=== PATIENT | female | born 1950 | race Caucasian/White ===

== ENCOUNTER 2016-08-27 10:38 | Emergency (ER) | payer BC, OTHER ==
[~2016-08-27] VITALS: Ht 160 cm; Wt 57.2 kg
[~2016-08-27 10:38] MED LIST: ATOR20TA PO; BUPR8SUB SL; CLON0.1T PO; CLOP75TA28 OR; GAB400C PO; METF-312 OR; OXYCONTIN PO; SENN8.6T4 PO; VALS40TA2 OR; VALS80TA42
[2016-08-27 10:47] VITALS: BP 128/81
[2016-08-27 12:06] LABS: Basophils # (auto) 0 uL; Basophils % (auto) 0.4 % (0.0-2.0); Eosinophils # (auto) 0.2 uL; Eosinophils % (auto) 1.9 % (0.0-7.0); Hematocrit 44.9 % (36.0-46.0); Hemoglobin 14.7 g/dL (12.2-16.2); Lymphocytes % (auto) 25.4 % (10.0-50.0); Mean Corpuscular Hemoglobin 31.5 pg (28.0-32.0); Mean Corpuscular Hgb Conc. 32.8 g/dL (32.0-36.0); Mean Corpuscular Volume 96.1 fL (80.0-100.0); Monocytes # (auto) 0.5 uL; Monocytes % (auto) 6.4 % (0.0-12.0); Neutrophils # (auto) 5.2 uL; Neutrophils % (auto) 65.9 % (37.0-80.0); Platelet Count (auto) 352 10^3/uL (140-450); Red Cell Distribution Width 14.5 % (11.6-16.0); White Blood Cell 7.9 10^3/uL (4.4-10.8)
[2016-08-27 12:23] LABS: Albumin 3.6 g/dL (3.4-5.0); Alkaline Phosphatase 68 U/L (45-117); Anion Gap 8 (5-15); Aspartate Aminotransferase 15 U/L (15-37); BUN/Creatinine Ratio 28.2; Bilirubin, Total 0.3 mg/dL (0.2-1.0); Blood Urea Nitrogen 24 mg/dL (7-18); Calcium 8.8 mg/dL (8.5-10.1); Carbon Dioxide 27 mmol/L (21-32); Chloride 103 mmol/L (98-107); GFR African American 86 mL/min; GFR Non-African American 71 mL/min; Glucose 174 mg/dL (74-106); Magnesium 2.8 mg/dL (1.6-2.6); Potassium 3.9 mmol/L (3.5-5.1); Sodium 138 mmol/L (136-145); Total Protein 6.6 g/dL (6.4-8.2)
== END 2016-08-27 21:49 | disposition left against medical advice (07) ==
LOC: ER 10:40
DX: R03.0 Elevated blood-pressure reading, without diagnosis of hypertension (principal); R42 Dizziness and giddiness; R51 Headache; Z88.6 Allergy status to analgesic agent; Z88.5 Allergy status to narcotic agent
CPT/HCPCS: 36415; 70450; 80053; 83735; 84484; 85025; 93005

== ENCOUNTER 2016-09-07 15:38 | Emergency (ER) | payer BC ==
[~2016-09-07] VITALS: Ht 160 cm; Wt 56.7 kg
[2016-09-07] MEDS ORDERED: SODIUM CHLORIDE 0.9% 1,000 ML IV ONE (17:00)
[2016-09-07 17:11] LABS: Basophils # (auto) 0 uL; Basophils % (auto) 0.2 % (0.0-2.0); Eosinophils # (auto) 0.1 uL; Eosinophils % (auto) 1.3 % (0.0-7.0); Hematocrit 40.8 % (36.0-46.0); Hemoglobin 13.9 g/dL (12.2-16.2); Lymphocytes # (auto) 1.8 uL; Lymphocytes % (auto) 16.4 % (10.0-50.0); Mean Corpuscular Hemoglobin 32.6 pg (28.0-32.0); Mean Corpuscular Hgb Conc. 34.2 g/dL (32.0-36.0); Mean Corpuscular Volume 95.5 fL (80.0-100.0); Mean Platelet Volume 8.1 fL (7.4-10.4); Monocytes % (auto) 8.9 % (0.0-12.0); Neutrophils % (auto) 73.2 % (37.0-80.0); Platelet Count (auto) 324 10^3/uL (140-450); Red Cell Distribution Width 14.6 % (11.6-16.0)
[2016-09-07] MEDS ORDERED: LORazepam 2MG/ML-1ML VIAL IV ONE (17:15)
[2016-09-07 17:27] LABS: Albumin 3.5 g/dL (3.4-5.0); BUN/Creatinine Ratio 30.9; Bilirubin, Total 0.2 mg/dL (0.2-1.0); Calcium 8.5 mg/dL (8.5-10.1); Potassium 3.6 mmol/L (3.5-5.1); Total Protein 6.9 g/dL (6.4-8.2)
[2016-09-07 18:45] VITALS: BP 153/88
== END 2016-09-07 19:56 | disposition home or self-care (01) ==
LOC: ER 15:38
DX: R19.7 Diarrhea, unspecified (principal); E11.9 Type 2 diabetes mellitus without complications; I10 Essential (primary) hypertension; Z86.73 Personal history of transient ischemic attack (TIA), and cerebral infarction without residual deficits; Z87.442 Personal history of urinary calculi; Z88.6 Allergy status to analgesic agent; Z88.1 Allergy status to other antibiotic agents
CPT/HCPCS: 36415; 74000; 80053; 85025; 96361; 96374; 99285; J2060

== ENCOUNTER → 2016-10-17 | Outpatient (CLI) | payer BC ==
[~2016-10-17] MED LIST changes: -METF-312 OR; +METF-370 OR
== END | disposition home or self-care (01) ==
LOC: XYW 08:36
PROVIDERS: ATTEND Internal Medicine Cardiovascular Disease
DX: I51.7 Cardiomegaly (principal); R00.2 Palpitations; R07.9 Chest pain, unspecified
CPT/HCPCS: 93017; 93306

== ENCOUNTER 2016-10-25 14:03 | Emergency (ER) | payer BC ==
[~2016-10-25] VITALS: Ht 157.5 cm; Wt 59.0 kg
[2016-10-25 14:56] LABS: Basophils # (auto) 0 uL; Basophils % (auto) 0.5 % (0.0-2.0); CONDITION Y; Eosinophils # (auto) 0.2 uL; Eosinophils % (auto) 2.6 % (0.0-7.0); Hematocrit 42.5 % (36.0-46.0); Hemoglobin 14.5 g/dL (12.2-16.2); Lymphocytes # (auto) 2.2 uL; Lymphocytes % (auto) 24.8 % (10.0-50.0); Mean Corpuscular Hemoglobin 33.4 pg (28.0-32.0); Mean Corpuscular Volume 98.1 fL (80.0-100.0); Mean Platelet Volume 7.7 fL (7.4-10.4); Monocytes # (auto) 0.7 uL; Monocytes % (auto) 8.2 % (0.0-12.0); Neutrophils # (auto) 5.7 uL; Neutrophils % (auto) 63.9 % (37.0-80.0); Platelet Count (auto) 404 10^3/uL (140-450); Red Cell Distribution Width 15.4 % (11.6-16.0); White Blood Cell 8.9 10^3/uL (4.4-10.8)
[2016-10-25 15:15] LABS: Anion Gap 9 (5-15); Aspartate Aminotransferase 16 U/L (15-37); BUN/Creatinine Ratio 35.6; Blood Urea Nitrogen 32 mg/dL (7-18); Calcium 8.5 mg/dL (8.5-10.1); Carbon Dioxide 27 mmol/L (21-32); Chloride 107 mmol/L (98-107); GFR African American 80 mL/min; GFR Non-African American 66 mL/min; Glucose 110 mg/dL (74-106); Potassium 4.2 mmol/L (3.5-5.1); Sodium 143 mmol/L (136-145)
[2016-10-25 15:18] LABS: Acetaminophen < 2.0 ug/mL (10-30)
[2016-10-25 15:23] LABS: Urine Bilirubin Negative (Negative); Urine Color Yellow (Yellow); Urine Glucose Normal (Normal); Urine Ketone Negative (Negative); Urine Mucus FEW (None Seen); Urine RBC 542 /hpf (0 - 4); Urine Squamous Epithelial Cell FEW /hpf (<5); Urine Urobilinogen Normal (Negative); Urine WBC Clumps PRESENT /hpf (None Seen); Urine pH 5.5 (5.0-8.0)
[2016-10-25 15:24] LABS: Urine Blood 2+ /uL (Negative); Urine Nitrite POSITIVE (Negative)
[2016-10-25 15:27] LABS: Alkaline Phosphatase 92 U/L (45-117); Bilirubin, Total 0.3 mg/dL (0.2-1.0); Total Protein 7.5 g/dL (6.4-8.2)
[2016-10-25] MEDS ORDERED: NITROFURANTOIN (MONO) 100 mg CAP PO ONE (16:45)
[2016-10-25] MEDS ORDERED: LORazepam 2MG/ML-1ML VIAL IV ONE (17:45)
[2016-10-25] MEDS ORDERED: LORazepam 0.5 MG TAB PO ONE (18:15)
[2016-10-26] MEDS ORDERED: IBUPROFEN 600 MG TAB PO ONE (01:00)
[2016-10-26] MEDS ORDERED: LOSARTAN POTASSIUM 25 MG TAB PO PRN (03:30)
[2016-10-26] MEDS: LOSARTAN POTASSIUM 25 MG TAB ONE ×2 (03:38→03:43)
[2016-10-26] MEDS ORDERED: traZODone HCL 50 MG TAB PO ONE ×2 (04:15→04:30)
[2016-10-26] MEDS ORDERED: ACETAMINOPHEN 325 MG TAB PO PRN (07:30)
[2016-10-26] MEDS ORDERED: IBUPROFEN 600 MG TAB PO PRN (07:30)
[2016-10-26 08:31] VITALS: BP 123/74
== END 2016-10-26 07:52 | disposition short-term general hospital (02) ==
LOC: ER 14:03
DX: F32.9 Major depressive disorder, single episode, unspecified (principal); N39.0 Urinary tract infection, site not specified; R45.851 Suicidal ideations; E11.9 Type 2 diabetes mellitus without complications; I10 Essential (primary) hypertension; F17.210 Nicotine dependence, cigarettes, uncomplicated; Z86.73 Personal history of transient ischemic attack (TIA), and cerebral infarction without residual deficits
CPT/HCPCS: 36415; 80053; 80307; 80320; 80329; 81001; 84702; 85025

== ENCOUNTER → 2017-04-24 | Outpatient (CLI) | payer BC | END | disposition home or self-care (01) | LOC: Rad HDHVI 12:13 | PROVIDERS: ATTEND Internal Medicine Cardiovascular Disease | DX: G62.9 Polyneuropathy, unspecified (principal) | CPT/HCPCS: 93880 ==

== ENCOUNTER 2021-05-24 20:58 | Inpatient (IN) | payer BC, OTHER ==
[~2021-05-24] VITALS: Ht 167.6 cm; Wt 67.4 kg
[~2021-05-24 20:58] MED LIST changes: +VALS80TA4; -VALS80TA42
[2021-05-24 23:26] LABS: Hematocrit 38.7 % (36.0-46.0); Hemoglobin 12.5 g/dL (12.2-16.2); Mean Corpuscular Hgb Conc. 32.3 g/dL (32.0-36.0); Red Blood Cells 4.16 10^6/uL (4.0-5.20); Red Cell Distribution Width 16.9 % (11.8-14.3); White Blood Cell 7.9 10^3/uL (4.4-10.8)
[2021-05-24 23:29] LABS: Basophils % (manual) 0 (0.0-2.0); Blast Cells 0; Eosinophils % (manual) 0 (0-7); Metamyelocytes % 0; Promyelocytes % 0; Reactive Lymphocytes 0
[2021-05-24 23:34] LABS: Albumin 2.2 g/dL (3.4-5.0); Calcium 8.1 mg/dL (8.5-10.1); Magnesium 2.9 mg/dL (1.6-2.6); Potassium 3.5 mmol/L (3.5-5.1)
[2021-05-24 23:34] LABS: Lactic Acid w/Reflex 2.2 mmol/L (0.4-2.0)
[2021-05-24 23:39] LABS: Bilirubin, Total 0.3 mg/dL (0.2-1.0); Total Protein 5.7 g/dL (6.4-8.2)
[2021-05-25] MEDS ORDERED: ENOXAPARIN SOD 100 MG/1 ML SYRINGE SC ONE
[2021-05-25 00:22] LABS: Band Neutrophils % (manual) 5; Lymphocytes % (manual) 11 (10.0-50.0); Monocytes % (manual) 8 (0-12); Myelocytes % 1
[2021-05-25] MEDS ORDERED: PIPERACILLIN-TAZOB 3.375GM 100 ML IV ONE (01:00)
[2021-05-25 03:48] LABS: Urine Bacteria MOD /hpf (None Seen); Urine Blood 3+ /uL (Negative); Urine Mucus FEW (None Seen); Urine Specific Gravity 1.017 (1.001-1.035); Urine WBC 1290 /hpf (0 - 5); Urine WBC Clumps PRESENT /hpf (None Seen)
[2021-05-25] MEDS ORDERED: IOHEXOL 350 MG/ML 100ML IJ ONE (06:42)
[2021-05-25] MEDS ORDERED: NITROGLYCERIN 0.4 MG SL TAB SL PRN (07:15)
[2021-05-25] MEDS ORDERED: DEXTROSE (50%) 50ML SYRG IV PRN (07:15)
[2021-05-25] MEDS ORDERED: ONDANSETRON HCL 4 MG/2 ML VIAL IV PRN (07:15)
[2021-05-25 07:55] LABS: BUN/Creatinine Ratio 55.4; Calcium 7.9 mg/dL (8.5-10.1); Potassium 3.7 mmol/L (3.5-5.1)
[2021-05-25] MEDS: cefTRIAXone 1GM/50ML D5W 50 ML IV SCH ×2 (08:54→09:30)
[2021-05-25] MEDS ORDERED: ENOXAPARIN SOD 100 MG/1 ML SYRINGE SC SCH (10:00)
[2021-05-25] MEDS ORDERED: DexAMETHasone SOD PHOS 10MG/1ML VIAL INJ IV ONE (11:45)
[2021-05-25] MEDS: ACCU-CHEK COMFORT CURVE STRIP VI SCH ×3 (11:59→21:37)
[2021-05-25] MEDS: InsuLIN REG 1unit/0.01ml Soln (100units/ml) SC SCH ×2 (12:06→16:42)
[2021-05-25] MEDS: ENOXAPARIN SOD 60 MG/0.6 ML SYRINGE SC SCH (12:15)
[2021-05-25] MEDS ORDERED: ACETAMINOPHEN 325 MG TAB PO ONE (15:00)
[2021-05-25 20:00] VITALS: BP 115/56
[2021-05-25] MEDS: ATORVASTATIN 20 MG TAB PO SCH (21:37)
[2021-05-25 21:46] VITALS: BP 95/56
[2021-05-25] MEDS ORDERED: InsuLIN REG 1unit/0.01ml Soln (100units/ml) SC SCH (22:00)
[2021-05-26] VITALS (7 sets, daily range): BP systolic 89–122; BP diastolic 55–69
[2021-05-26] MEDS: ENOXAPARIN SOD 60 MG/0.6 ML SYRINGE SC SCH ×3 (00:05→23:29)
[2021-05-26] MEDS: ACCU-CHEK COMFORT CURVE STRIP VI SCH ×4 (06:30→23:30)
[2021-05-26] MEDS: InsuLIN REG 1unit/0.01ml Soln (100units/ml) SC SCH ×4 (06:31→23:31)
[2021-05-26 08:39] LABS: Basophils # (auto) 0.1 10 ^3/uL (0-0.2); Basophils % (auto) 0.8 % (0.0-2.0); Eosinophils # (auto) 0 10 ^3/uL (0-0.8); Hematocrit 37.4 % (36.0-46.0); Hemoglobin 12.3 g/dL (12.2-16.2); Lymphocytes # (auto) 0.7 10 ^3/uL (0.4-5.4); Lymphocytes % (auto) 7.9 % (10.0-50.0); Mean Corpuscular Hemoglobin 30.5 pg (28.0-32.0); Mean Corpuscular Hgb Conc. 32.9 g/dL (32.0-36.0); Mean Corpuscular Volume 92.7 fL (80.0-100.0); Monocytes # (auto) 0.3 10 ^3/uL (0-1.3); Neutrophils # (auto) 7.5 10 ^3/uL (1.6-8.6); Neutrophils % (auto) 87.3 % (37.0-80.0); Nucleated Red Blood Cells % 0.1 %; Red Blood Cells 4.04 10^6/uL (4.0-5.20); White Blood Cell 8.6 10^3/uL (4.4-10.8)
[2021-05-26 09:00] LABS: BUN/Creatinine Ratio 68.2; Calcium 8.2 mg/dL (8.5-10.1); Potassium 3.8 mmol/L (3.5-5.1)
[2021-05-26] MEDS: cefTRIAXone 1GM/50ML D5W 50 ML IV SCH (09:44)
[2021-05-26] MEDS: DexAMETHasone SOD PHOS 10MG/1ML VIAL INJ IV SCH (09:44)
[2021-05-26] MEDS: D5W 5% 1,000 ML IV SCH (14:10)
[2021-05-26] MEDS ORDERED: PPN PER PHARMACY 0 ML IV SCH (14:30)
[2021-05-26 15:20] LABS: Phosphorus 2.8 mg/dL (2.5-4.90); Pre Albumin 7.8 mg/dL (20.0-40.0)
[2021-05-26] MEDS ORDERED: HYDROcodone-ACET 5/325MG TAB PO PRN (15:30)
[2021-05-26] MEDS ORDERED: REMDESIVIR PER PHARMACY 0 ML IV SCH (16:15)
[2021-05-26] MEDS ORDERED: traMADol HCL 50 MG TAB PO PRN (17:15)
[2021-05-26] MEDS ORDERED: MORPHINE SULFATE INJECTION 2 MG/ML SYRG IV PRN (17:15)
[2021-05-26] MEDS ORDERED: REMDESIVIR 200 MG in NS 210ml LOADING DOSE ADULT IV ONE (18:00)
[2021-05-26] MEDS ORDERED: AMINO ACID INFUSION IN D10W 1,000 ML IV NR (20:00)
[2021-05-26] MEDS: ATORVASTATIN 20 MG TAB PO SCH (23:29)
[2021-05-27] MEDS ORDERED: DEXTROSE (50%) 50ML SYRG IV SCH
[2021-05-27 05:00] VITALS: BP 106/66
[2021-05-27] MEDS: ACCU-CHEK COMFORT CURVE STRIP VI SCH ×3 (05:31→17:11)
[2021-05-27] MEDS: D5W 5% 1,000 ML IV SCH ×2 (05:31→11:18)
[2021-05-27] MEDS: InsuLIN REG 1unit/0.01ml Soln (100units/ml) SC SCH ×3 (05:40→17:13)
[2021-05-27 06:43] LABS: Albumin 1.8 g/dL (3.4-5.0); BUN/Creatinine Ratio 53.5; Calcium 7.9 mg/dL (8.5-10.1); Potassium 3.7 mmol/L (3.5-5.1)
[2021-05-27 06:56] LABS: Bilirubin, Total 0.2 mg/dL (0.2-1.0); Phosphorus 1.5 mg/dL (2.5-4.90); Total Protein 5.2 g/dL (6.4-8.2)
[2021-05-27] MEDS: DexAMETHasone SOD PHOS 10MG/1ML VIAL INJ IV SCH (08:05)
[2021-05-27] MEDS ORDERED: LORazepam 2MG/ML-1ML VIAL IV ONE (08:30)
[2021-05-27] MEDS: cefTRIAXone 1GM/50ML D5W 50 ML IV SCH (08:50)
[2021-05-27] MEDS: ASPirin 81 mg TAB PO SCH (09:43)
[2021-05-27] MEDS ORDERED: D5W 5% 1,000 ML IV SCH ×2 (10:45)
[2021-05-27] MEDS: ENOXAPARIN SOD 40 MG/0.4 ML SYRINGE SC SCH (10:46)
[2021-05-27] MEDS ORDERED: POTASSIUM PHOSPHATE 22 MEQ in SODIUM CHL 0.9% 100 ML IV ONE (11:30)
[2021-05-27 13:00] VITALS: BP 114/80
[2021-05-27] MEDS: REMDESIVIR 100mg 100 MG in SODIUM CHL 0.9% 230 ML IV SCH (15:00)
[2021-05-27 16:53] VITALS: BP 114/86
[2021-05-27] MEDS ORDERED: PPN PER PHARMACY IV NR ×6 (20:00)
[2021-05-27] MEDS: ATORVASTATIN 20 MG TAB PO SCH (21:14)
[2021-05-27 22:00] VITALS: BP 93/71
[2021-05-28] MEDS: ACCU-CHEK COMFORT CURVE STRIP VI SCH ×4 (00:55→17:37)
[2021-05-28] MEDS: InsuLIN REG 1unit/0.01ml Soln (100units/ml) SC SCH ×4 (00:57→17:38)
[2021-05-28] MEDS: LORazepam 2MG/ML-1ML VIAL IV PRN ×4 (01:50→23:25)
[2021-05-28 05:00] VITALS: BP 101/59
[2021-05-28 07:49] LABS: Basophils # (auto) 0 10 ^3/uL (0-0.2); Basophils % (auto) 0.1 % (0.0-2.0); Eosinophils # (auto) 0 10 ^3/uL (0-0.8); Eosinophils % (auto) 0.1 % (0.0-7.0); Hematocrit 37.1 % (36.0-46.0); Lymphocytes # (auto) 0.4 10 ^3/uL (0.4-5.4); Lymphocytes % (auto) 4.4 % (10.0-50.0); Mean Corpuscular Hgb Conc. 32.5 g/dL (32.0-36.0); Mean Corpuscular Volume 92.4 fL (80.0-100.0); Monocytes # (auto) 0.3 10 ^3/uL (0-1.3); Monocytes % (auto) 3.3 % (0.0-12.0); Neutrophils # (auto) 8.7 10 ^3/uL (1.6-8.6); Neutrophils % (auto) 92.1 % (37.0-80.0); Nucleated Red Blood Cells % 0.3 %; Red Blood Cells 4.01 10^6/uL (4.0-5.20); Red Cell Distribution Width 16.6 % (11.8-14.3); White Blood Cell 9.4 10^3/uL (4.4-10.8)
[2021-05-28 08:14] LABS: INR 1.2 (0.9-1.15); Partial Thromboplastin Time 28.8 sec (23.6-33.0)
[2021-05-28] MEDS: ENOXAPARIN SOD 40 MG/0.4 ML SYRINGE SC SCH (08:25)
[2021-05-28] MEDS: cefTRIAXone 1GM/50ML D5W 50 ML IV SCH (08:25)
[2021-05-28] MEDS: DexAMETHasone SOD PHOS 10MG/1ML VIAL INJ IV SCH (08:25)
[2021-05-28 08:30] VITALS: BP 120/59
[2021-05-28] MEDS: ASPirin 81 mg TAB PO SCH (08:35)
[2021-05-28 10:48] LABS: Albumin 1.9 g/dL (3.4-5.0); Calcium 7.7 mg/dL (8.5-10.1); Potassium 3.8 mmol/L (3.5-5.1)
[2021-05-28 10:52] LABS: Bilirubin, Total 0.3 mg/dL (0.2-1.0); Phosphorus 1.9 mg/dL (2.5-4.90); Total Protein 5.3 g/dL (6.4-8.2)
[2021-05-28] MEDS: D5W 5% 1,000 ML IV SCH (11:13)
[2021-05-28] MEDS ORDERED: POTASSIUM PHOSPHATE 44 MEQ in D5W 5% 250 ML IV ONE (11:30)
[2021-05-28] MEDS ORDERED: FUROSEMIDE 100 MG/10ML VIAL IV ONE (12:15)
[2021-05-28 12:30] VITALS: BP 98/70
[2021-05-28] MEDS ORDERED: FUROSEMIDE 40 MG/4 ML VIAL IV ONE (13:45)
[2021-05-28] MEDS: PANTOPRAZOLE 40 MG/10 ML VIAL INJ IV SCH (13:57)
[2021-05-28] MEDS: REMDESIVIR 100mg 100 MG in SODIUM CHL 0.9% 230 ML IV SCH (15:00)
[2021-05-28 17:00] VITALS: BP 128/66
[2021-05-28] MEDS ORDERED: PPN PER PHARMACY IV NR ×7 (20:00)
[2021-05-28 22:00] VITALS: BP 103/76
[2021-05-28] MEDS: ATORVASTATIN 20 MG TAB PO SCH (22:00)
[2021-05-29] MEDS: ACCU-CHEK COMFORT CURVE STRIP VI SCH ×4 (00:55→17:11)
[2021-05-29] MEDS: InsuLIN REG 1unit/0.01ml Soln (100units/ml) SC SCH ×4 (00:58→17:17)
[2021-05-29 05:00] VITALS: BP 140/82
[2021-05-29 07:15] LABS: Potassium 3.7 mmol/L (3.5-5.1)
[2021-05-29 07:20] LABS: Albumin 1.8 g/dL (3.4-5.0); BUN/Creatinine Ratio 49.2; Calcium 7.6 mg/dL (8.5-10.1); Total Protein 5.4 g/dL (6.4-8.2)
[2021-05-29 07:33] LABS: Bilirubin, Total 0.3 mg/dL (0.2-1.0); Phosphorus 1.6 mg/dL (2.5-4.90)
[2021-05-29] MEDS ORDERED: POTASSIUM PHOSPHATE 44 MEQ in D5W 5% 250 ML IV ONE (08:30)
[2021-05-29 09:00] VITALS: BP 119/60
[2021-05-29] MEDS: ASPirin 81 mg TAB PO SCH (10:00)
[2021-05-29] MEDS: cefTRIAXone 1GM/50ML D5W 50 ML IV SCH (10:07)
[2021-05-29] MEDS: PANTOPRAZOLE 40 MG/10 ML VIAL INJ IV SCH (10:07)
[2021-05-29] MEDS: DexAMETHasone SOD PHOS 10MG/1ML VIAL INJ IV SCH (10:07)
[2021-05-29] MEDS: ENOXAPARIN SOD 40 MG/0.4 ML SYRINGE SC SCH (10:07)
[2021-05-29] MEDS: LORazepam 2MG/ML-1ML VIAL IV PRN (10:11)
[2021-05-29] MEDS ORDERED: LIDOCAINE 1% (LOCAL ANESTH.) PF 5ml SDV ID ONE (11:45)
[2021-05-29] MEDS: D5W 5% 1,000 ML IV SCH ×2 (12:55→14:55)
[2021-05-29 13:00] VITALS: BP 134/91
[2021-05-29] MEDS: REMDESIVIR 100mg 100 MG in SODIUM CHL 0.9% 230 ML IV SCH (15:30)
[2021-05-29] MEDS ORDERED: POTASSIUM PHOSPHATE 22 MEQ in SODIUM CHL 0.9% 100 ML IV ONE (15:45)
[2021-05-29 17:00] VITALS: BP 144/84
[2021-05-29] MEDS: AZITHROMYCIN 500MG/ 250ML 250 ML IV SCH (17:11)
[2021-05-29 20:00] VITALS: BP 139/61
[2021-05-29] MEDS ORDERED: PPN PER PHARMACY IV NR ×8 (20:00)
[2021-05-29] MEDS ORDERED: HEPARIN SODIUM (PORCINE) 5000 UNITS/ML 1ML VIAL IV ONE (21:45)
[2021-05-29] MEDS ORDERED: HEPARIN DRIP/D5W 100UNITS/ML 250 ML IV SCH (21:45)
[2021-05-29 22:00] VITALS: BP 139/61
[2021-05-29] MEDS: ASCORBIC ACID 500 MG TAB PO SCH (22:00)
[2021-05-29] MEDS: ATORVASTATIN 20 MG TAB PO SCH (22:00)
[2021-05-29] MEDS: SODIUM CHLOR 0.9% PF (SALINE LOCK) 10ML VIAL/SYR IV SCH (22:29)
[2021-05-29 23:06] LABS: Basophils # (auto) 0.1 10 ^3/uL (0-0.2); Basophils % (auto) 0.9 % (0.0-2.0); Eosinophils # (auto) 0 10 ^3/uL (0-0.8); Eosinophils % (auto) 0.2 % (0.0-7.0); Hematocrit 38.6 % (36.0-46.0); Hemoglobin 12.8 g/dL (12.2-16.2); Lymphocytes # (auto) 0.4 10 ^3/uL (0.4-5.4); Lymphocytes % (auto) 4.2 % (10.0-50.0); Mean Corpuscular Hemoglobin 30.3 pg (28.0-32.0); Mean Corpuscular Hgb Conc. 33.1 g/dL (32.0-36.0); Mean Corpuscular Volume 91.6 fL (80.0-100.0); Monocytes # (auto) 0.4 10 ^3/uL (0-1.3); Monocytes % (auto) 4.3 % (0.0-12.0); Neutrophils # (auto) 8.5 10 ^3/uL (1.6-8.6); Neutrophils % (auto) 90.4 % (37.0-80.0); Nucleated Red Blood Cells % 0.2 %; Red Blood Cells 4.21 10^6/uL (4.0-5.20); White Blood Cell 9.4 10^3/uL (4.4-10.8)
[2021-05-29 23:21] LABS: INR 1.23 (0.9-1.15); Partial Thromboplastin Time 23.4 sec (23.6-33.0)
[2021-05-30] VITALS (9 sets, daily range): BP systolic 104–139; BP diastolic 52–73
[2021-05-30] MEDS: InsuLIN REG 1unit/0.01ml Soln (100units/ml) SC SCH ×4 (01:19→18:40)
[2021-05-30] MEDS: ACCU-CHEK COMFORT CURVE STRIP VI SCH ×5 (06:02→23:00)
[2021-05-30] MEDS: LORazepam 2MG/ML-1ML VIAL IV PRN ×3 (07:00→21:30)
[2021-05-30 08:18] LABS: Potassium 3.8 mmol/L (3.5-5.1)
[2021-05-30 08:29] LABS: Albumin 1.8 g/dL (3.4-5.0); BUN/Creatinine Ratio 58.7; Bilirubin, Total 0.5 mg/dL (0.2-1.0); Calcium 7.7 mg/dL (8.5-10.1); Phosphorus 2.1 mg/dL (2.5-4.90); Total Protein 5.2 g/dL (6.4-8.2)
[2021-05-30] MEDS: cefTRIAXone 1GM/50ML D5W 50 ML IV SCH (09:46)
[2021-05-30] MEDS: SODIUM CHLOR 0.9% PF (SALINE LOCK) 10ML VIAL/SYR IV SCH ×2 (09:47→21:28)
[2021-05-30] MEDS: PANTOPRAZOLE 40 MG/10 ML VIAL INJ IV SCH (09:47)
[2021-05-30] MEDS: DexAMETHasone SOD PHOS 10MG/1ML VIAL INJ IV SCH (09:47)
[2021-05-30] MEDS: ASCORBIC ACID 500 MG TAB PO SCH ×2 (09:48→21:29)
[2021-05-30] MEDS: CHOLECALCIFEROL (VITD3) 2,000 UNIT CAP/TAB PO SCH (09:48)
[2021-05-30] MEDS: ASPirin 81 mg TAB PO SCH (09:48)
[2021-05-30] MEDS: ZINC SULFATE 220mg CAP or TAB PO SCH (09:48)
[2021-05-30 09:50] LABS: INR 1.27 (0.9-1.15)
[2021-05-30 10:10] LABS: Partial Thromboplastin Time 85.3 sec (23.6-33.0)
[2021-05-30] MEDS: AZITHROMYCIN 500MG/ 250ML 250 ML IV SCH (11:00)
[2021-05-30] MEDS ORDERED: POTASSIUM PHOSP 22MEQ(15MMOLE) in NS 100 ML IV ONE (11:30)
[2021-05-30] MEDS: REMDESIVIR 100mg 100 MG in SODIUM CHL 0.9% 230 ML IV SCH (16:23)
[2021-05-30 18:11] LABS: INR 1.33 (0.9-1.15); Partial Thromboplastin Time 49.6 sec (23.6-33.0)
[2021-05-30] MEDS: HEPARIN DRIP/D5W 100UNITS/ML 250 ML IV SCH (19:24)
[2021-05-30] MEDS: ATORVASTATIN 20 MG TAB PO SCH (21:29)
[2021-05-30] MEDS: TPN PER PHARMACY IV NR ×8 (21:47)
[2021-05-30] MEDS ORDERED: QUEtiapine FUMARATE 25 MG TAB PO SCH (22:00)
[2021-05-31] MEDS: LORazepam 2MG/ML-1ML VIAL IV PRN ×2 (02:50→10:46)
[2021-05-31 05:00] VITALS: BP 121/82
[2021-05-31] MEDS: InsuLIN REG 1unit/0.01ml Soln (100units/ml) SC SCH ×4 (06:00→17:37)
[2021-05-31] MEDS: ACCU-CHEK COMFORT CURVE STRIP VI SCH ×3 (06:10→17:09)
[2021-05-31 06:56] LABS: Albumin 1.9 g/dL (3.4-5.0); Calcium 7.8 mg/dL (8.5-10.1); Potassium 3.9 mmol/L (3.5-5.1)
[2021-05-31 07:05] LABS: BUN/Creatinine Ratio 61.9; Bilirubin, Total 0.4 mg/dL (0.2-1.0); CRP High Sensitivity 7.51 mg/dL (< 0.3); Phosphorus 2.7 mg/dL (2.5-4.90); Total Protein 5.4 g/dL (6.4-8.2)
[2021-05-31 09:20] VITALS: BP 142/88
[2021-05-31] MEDS: CHOLECALCIFEROL (VITD3) 2,000 UNIT CAP/TAB PO SCH (10:00)
[2021-05-31] MEDS: ASPirin 81 mg TAB PO SCH (10:00)
[2021-05-31] MEDS: ZINC SULFATE 220mg CAP or TAB PO SCH (10:00)
[2021-05-31] MEDS ORDERED: TPN PER PHARMACY 0 ML IV SCH (10:00)
[2021-05-31] MEDS: ASCORBIC ACID 500 MG TAB PO SCH ×2 (10:00→21:10)
[2021-05-31] MEDS: DexAMETHasone SOD PHOS 10MG/1ML VIAL INJ IV SCH (10:08)
[2021-05-31] MEDS: cefTRIAXone 1GM/50ML D5W 50 ML IV SCH (10:08)
[2021-05-31] MEDS: SODIUM CHLOR 0.9% PF (SALINE LOCK) 10ML VIAL/SYR IV SCH ×2 (10:09→20:17)
[2021-05-31] MEDS: PANTOPRAZOLE 40 MG/10 ML VIAL INJ IV SCH (10:09)
[2021-05-31] MEDS: AZITHROMYCIN 500MG/ 250ML 250 ML IV SCH (11:03)
[2021-05-31 11:16] LABS: INR 1.17 (0.9-1.15)
[2021-05-31] MEDS: D5W 5% 1,000 ML IV SCH (11:16)
[2021-05-31 11:33] LABS: Partial Thromboplastin Time 81.2 sec (23.6-33.0)
[2021-05-31 12:46] VITALS: BP 150/71
[2021-05-31] MEDS: MAGNESIUM SULFATE 1GM/100ML 100 ML IV SCH ×2 (13:31→14:31)
[2021-05-31] MEDS: REMDESIVIR 100mg 100 MG in SODIUM CHL 0.9% 230 ML IV SCH (16:36)
[2021-05-31 17:00] VITALS: BP 143/77
[2021-05-31] MEDS: HEPARIN DRIP/D5W 100UNITS/ML 250 ML IV SCH (17:23)
[2021-05-31 20:00] VITALS: BP 139/61
[2021-05-31] MEDS ORDERED: TPN PER PHARMACY IV NR ×8 (20:00)
[2021-05-31] MEDS: TPN PER PHARMACY IV NR ×8 (20:17)
[2021-05-31] MEDS: ATORVASTATIN 20 MG TAB PO SCH (21:09)
[2021-05-31] MEDS: QUEtiapine FUMARATE 25 MG TAB PO SCH (21:10)
[2021-05-31] MEDS: ENOXAPARIN SOD 60 MG/0.6 ML SYRINGE SC SCH (21:12)
[2021-05-31 22:00] VITALS: BP 132/78
[2021-05-31] MEDS ORDERED: APIXABAN 5 MG TAB PO SCH (22:00)
[2021-06-01] MEDS: ACCU-CHEK COMFORT CURVE STRIP VI SCH ×4 (00:07→17:52)
[2021-06-01] MEDS: HALOPERIDOL LACTATE 5 MG/ML INJ VIAL IM PRN ×2 (04:51→17:54)
[2021-06-01 05:00] VITALS: BP 127/72
[2021-06-01] MEDS: InsuLIN REG 1unit/0.01ml Soln (100units/ml) SC SCH ×4 (06:15→17:53)
[2021-06-01 07:44] LABS: Basophils # (auto) 0 10 ^3/uL (0-0.2); Basophils % (auto) 0.1 % (0.0-2.0); Eosinophils # (auto) 0 10 ^3/uL (0-0.8); Eosinophils % (auto) 0.3 % (0.0-7.0); Hematocrit 41.4 % (36.0-46.0); Hemoglobin 13.4 g/dL (12.2-16.2); Lymphocytes # (auto) 0.5 10 ^3/uL (0.4-5.4); Lymphocytes % (auto) 4.8 % (10.0-50.0); Mean Corpuscular Hemoglobin 29.3 pg (28.0-32.0); Mean Corpuscular Hgb Conc. 32.4 g/dL (32.0-36.0); Mean Corpuscular Volume 90.5 fL (80.0-100.0); Monocytes # (auto) 0.8 10 ^3/uL (0-1.3); Monocytes % (auto) 7.1 % (0.0-12.0); Neutrophils # (auto) 9.9 10 ^3/uL (1.6-8.6); Neutrophils % (auto) 87.7 % (37.0-80.0); Nucleated Red Blood Cells % 0.1 %; Red Blood Cells 4.57 10^6/uL (4.0-5.20); Red Cell Distribution Width 16.4 % (11.8-14.3); White Blood Cell 11.3 10^3/uL (4.4-10.8)
[2021-06-01 08:04] LABS: Calcium 8.4 mg/dL (8.5-10.1); Potassium 4.1 mmol/L (3.5-5.1)
[2021-06-01 08:10] LABS: INR 1.11 (0.9-1.15); Partial Thromboplastin Time 27.8 sec (23.6-33.0)
[2021-06-01 08:21] LABS: Bilirubin, Total 0.4 mg/dL (0.2-1.0)
[2021-06-01 08:50] VITALS: BP 138/89
[2021-06-01] MEDS: ZINC SULFATE 220mg CAP or TAB PO SCH (10:00)
[2021-06-01] MEDS: QUEtiapine FUMARATE 25 MG TAB PO SCH ×2 (10:00→22:00)
[2021-06-01] MEDS: CHOLECALCIFEROL (VITD3) 2,000 UNIT CAP/TAB PO SCH (10:00)
[2021-06-01] MEDS: ASCORBIC ACID 500 MG TAB PO SCH ×2 (10:00→22:00)
[2021-06-01] MEDS: DexAMETHasone SOD PHOS 10MG/1ML VIAL INJ IV SCH (10:19)
[2021-06-01] MEDS: cefTRIAXone 1GM/50ML D5W 50 ML IV SCH (10:19)
[2021-06-01] MEDS: PANTOPRAZOLE 40 MG/10 ML VIAL INJ IV SCH (10:20)
[2021-06-01] MEDS: SODIUM CHLOR 0.9% PF (SALINE LOCK) 10ML VIAL/SYR IV SCH ×2 (10:20→22:13)
[2021-06-01] MEDS: ENOXAPARIN SOD 60 MG/0.6 ML SYRINGE SC SCH ×2 (10:21→22:21)
[2021-06-01 10:53] LABS: BUN/Creatinine Ratio 58.9
[2021-06-01] MEDS: D5W 5% 1,000 ML IV SCH (11:16)
[2021-06-01 13:00] VITALS: BP 138/80
[2021-06-01] MEDS ORDERED: FUROSEMIDE 40 MG/4 ML VIAL IV ONE (14:00)
[2021-06-01] MEDS ORDERED: POTASSIUM CHL 10MEQ/50ML 100 ML IV PRN (15:30)
[2021-06-01 17:00] VITALS: BP 130/80
[2021-06-01] MEDS: FUROSEMIDE 40 MG/4 ML VIAL IV SCH (17:52)
[2021-06-01] MEDS ORDERED: TPN PER PHARMACY IV NR ×7 (20:00)
[2021-06-01 22:00] VITALS: BP 141/102
[2021-06-01] MEDS: ATORVASTATIN 20 MG TAB PO SCH (22:00)
[2021-06-02] MEDS: InsuLIN REG 1unit/0.01ml Soln (100units/ml) SC SCH ×4 (02:54→17:50)
[2021-06-02] MEDS: HALOPERIDOL LACTATE 5 MG/ML INJ VIAL IM PRN (03:25)
[2021-06-02 05:00] VITALS: BP 129/95
[2021-06-02] MEDS: ACCU-CHEK COMFORT CURVE STRIP VI SCH ×4 (05:37→17:49)
[2021-06-02] MEDS: FUROSEMIDE 40 MG/4 ML VIAL IV SCH ×2 (05:38→18:46)
[2021-06-02 07:39] LABS: Potassium 4.2 mmol/L (3.5-5.1)
[2021-06-02 07:46] LABS: Albumin 2.3 g/dL (3.4-5.0); BUN/Creatinine Ratio 75.7; Bilirubin, Total 0.4 mg/dL (0.2-1.0); Calcium 8.8 mg/dL (8.5-10.1); Phosphorus 4.2 mg/dL (2.5-4.90); Pre Albumin 21.8 mg/dL (20.0-40.0); Total Protein 6.9 g/dL (6.4-8.2)
[2021-06-02 08:52] VITALS: BP 124/70
[2021-06-02 09:00] VITALS: BP 118/66
[2021-06-02] MEDS: ENOXAPARIN SOD 60 MG/0.6 ML SYRINGE SC SCH ×2 (11:33→22:17)
[2021-06-02] MEDS: ASCORBIC ACID 500 MG TAB PO SCH ×2 (11:34→22:00)
[2021-06-02] MEDS: SODIUM CHLOR 0.9% PF (SALINE LOCK) 10ML VIAL/SYR IV SCH ×2 (11:34→22:08)
[2021-06-02] MEDS: QUEtiapine FUMARATE 25 MG TAB PO SCH ×2 (11:34→22:17)
[2021-06-02] MEDS: ZINC SULFATE 220mg CAP or TAB PO SCH (11:34)
[2021-06-02] MEDS: CHOLECALCIFEROL (VITD3) 2,000 UNIT CAP/TAB PO SCH (11:34)
[2021-06-02] MEDS: PANTOPRAZOLE 40 MG/10 ML VIAL INJ IV SCH (11:35)
[2021-06-02] MEDS: DexAMETHasone SOD PHOS 10MG/1ML VIAL INJ IV SCH (11:35)
[2021-06-02] MEDS: cefTRIAXone 1GM/50ML D5W 50 ML IV SCH (11:36)
[2021-06-02 12:45] VITALS: BP 120/69
[2021-06-02] MEDS: HYDROcodone-ACET 5/325MG TAB PO PRN ×2 (13:19→17:40)
[2021-06-02] MEDS: ACETAMINOPHEN 325 MG TAB PO PRN ×2 (14:32→22:17)
[2021-06-02 16:51] VITALS: BP 102/76
[2021-06-02] MEDS ORDERED: TPN PER PHARMACY IV NR ×8 (20:00)
[2021-06-02 22:00] VITALS: BP 128/94
[2021-06-02] MEDS: ATORVASTATIN 20 MG TAB PO SCH (22:17)
[2021-06-03] VITALS (7 sets, daily range): BP systolic 88–125; BP diastolic 50–79
[2021-06-03] MEDS: ACCU-CHEK COMFORT CURVE STRIP VI SCH ×5 (00:06→23:31)
[2021-06-03] MEDS: InsuLIN REG 1unit/0.01ml Soln (100units/ml) SC SCH ×5 (00:11→23:32)
[2021-06-03] MEDS: HYDROcodone-ACET 5/325MG TAB PO PRN ×2 (03:47→19:52)
[2021-06-03 05:59] LABS: Albumin 2.3 g/dL (3.4-5.0); Calcium 8.8 mg/dL (8.5-10.1); Potassium 3.8 mmol/L (3.5-5.1)
[2021-06-03 06:04] LABS: BUN/Creatinine Ratio 86.2; Bilirubin, Total 0.5 mg/dL (0.2-1.0); Magnesium 2.6 mg/dL (1.6-2.6); Total Protein 6.9 g/dL (6.4-8.2)
[2021-06-03] MEDS: FUROSEMIDE 40 MG/4 ML VIAL IV SCH ×2 (06:47→18:05)
[2021-06-03] MEDS: cefTRIAXone 1GM/50ML D5W 50 ML IV SCH (09:17)
[2021-06-03] MEDS: DexAMETHasone SOD PHOS 10MG/1ML VIAL INJ IV SCH (09:17)
[2021-06-03] MEDS: QUEtiapine FUMARATE 25 MG TAB PO SCH ×2 (09:18→22:11)
[2021-06-03] MEDS: CHOLECALCIFEROL (VITD3) 2,000 UNIT CAP/TAB PO SCH (09:18)
[2021-06-03] MEDS: PANTOPRAZOLE 40 MG/10 ML VIAL INJ IV SCH (09:18)
[2021-06-03] MEDS: ASCORBIC ACID 500 MG TAB PO SCH (09:18)
[2021-06-03] MEDS: ZINC SULFATE 220mg CAP or TAB PO SCH (09:18)
[2021-06-03] MEDS: SODIUM CHLOR 0.9% PF (SALINE LOCK) 10ML VIAL/SYR IV SCH ×2 (09:18→22:12)
[2021-06-03] MEDS: ENOXAPARIN SOD 60 MG/0.6 ML SYRINGE SC SCH ×2 (09:19→22:11)
[2021-06-03] MEDS ORDERED: METOPROLOL TARTRATE 25 MG TAB PO ONE (14:15)
[2021-06-03] MEDS ORDERED: dilTIAZem 25 MG/5 ML VIAL IV ONE (14:15)
[2021-06-03] MEDS: ACETAMINOPHEN 325 MG TAB PO PRN (17:44)
[2021-06-03] MEDS ORDERED: TPN PER PHARMACY IV NR ×9 (20:00)
[2021-06-03] MEDS: ATORVASTATIN 20 MG TAB PO SCH (22:11)
[2021-06-03] MEDS: METOPROLOL TARTRATE 25 MG TAB PO SCH (22:12)
[2021-06-04] VITALS (7 sets, daily range): BP systolic 99–129; BP diastolic 56–72
[2021-06-04 05:39] LABS: Potassium 3.7 mmol/L (3.5-5.1)
[2021-06-04 05:49] LABS: Albumin 2.1 g/dL (3.4-5.0); BUN/Creatinine Ratio 106.4; Bilirubin, Total 0.5 mg/dL (0.2-1.0); Calcium 8.2 mg/dL (8.5-10.1); Magnesium 2.8 mg/dL (1.6-2.6); Total Protein 5.7 g/dL (6.4-8.2)
[2021-06-04] MEDS: FUROSEMIDE 40 MG/4 ML VIAL IV SCH (05:49)
[2021-06-04] MEDS: InsuLIN REG 1unit/0.01ml Soln (100units/ml) SC SCH ×3 (05:49→17:34)
[2021-06-04] MEDS: ACCU-CHEK COMFORT CURVE STRIP VI SCH ×2 (05:49→22:57)
[2021-06-04] MEDS: METOPROLOL TARTRATE 25 MG TAB PO SCH (10:00)
[2021-06-04] MEDS ORDERED: DexAMETHasone SOD PHOS 4 MG/1ML SDV INJ IV SCH (10:00)
[2021-06-04] MEDS: cefTRIAXone 1GM/50ML D5W 50 ML IV SCH (10:03)
[2021-06-04] MEDS: SODIUM CHLOR 0.9% PF (SALINE LOCK) 10ML VIAL/SYR IV SCH ×2 (10:05→22:57)
[2021-06-04] MEDS: PANTOPRAZOLE 40 MG/10 ML VIAL INJ IV SCH (10:05)
[2021-06-04] MEDS: ENOXAPARIN SOD 60 MG/0.6 ML SYRINGE SC SCH ×2 (10:07→22:57)
[2021-06-04] MEDS: CHOLECALCIFEROL (VITD3) 2,000 UNIT CAP/TAB PO SCH (10:07)
[2021-06-04] MEDS: QUEtiapine FUMARATE 25 MG TAB PO SCH ×2 (10:07→18:00)
[2021-06-04] MEDS: HYDROcodone-ACET 5/325MG TAB PO PRN ×4 (10:08→16:51)
[2021-06-04] MEDS ORDERED: FUROSEMIDE 20 MG/2 ML VIAL IV SCH (18:00)
[2021-06-04] MEDS ORDERED: TPN PER PHARMACY IV NR ×8 (20:00)
[2021-06-04] MEDS ORDERED: DEXTROSE (50%) 50ML SYRG IV PRN (22:00)
[2021-06-04] MEDS: ATORVASTATIN 20 MG TAB PO SCH (22:57)
[2021-06-05] MEDS: InsuLIN REG 1unit/0.01ml Soln (100units/ml) SC SCH ×5 (00:09→22:28)
[2021-06-05 05:00] VITALS: BP 128/78
[2021-06-05] MEDS: ACCU-CHEK COMFORT CURVE STRIP VI SCH ×4 (06:28→22:28)
[2021-06-05] MEDS: cefTRIAXone 1GM/50ML D5W 50 ML IV SCH (09:27)
[2021-06-05] MEDS: SODIUM CHLOR 0.9% PF (SALINE LOCK) 10ML VIAL/SYR IV SCH ×2 (09:28→22:26)
[2021-06-05] MEDS: DexAMETHasone 4 MG TAB PO SCH (09:29)
[2021-06-05] MEDS: ENOXAPARIN SOD 60 MG/0.6 ML SYRINGE SC SCH (09:30)
[2021-06-05] MEDS: FAMOTIDINE 20 MG TAB PO SCH (09:30)
[2021-06-05] MEDS: CHOLECALCIFEROL (VITD3) 2,000 UNIT CAP/TAB PO SCH (09:30)
[2021-06-05 14:46] VITALS: BP 115/73
[2021-06-05 17:00] VITALS: BP 115/69
[2021-06-05] MEDS: QUEtiapine FUMARATE 25 MG TAB PO SCH (17:27)
[2021-06-05 21:53] VITALS: BP 156/89
[2021-06-05] MEDS: ATORVASTATIN 20 MG TAB PO SCH (22:26)
[2021-06-05] MEDS: APIXABAN 5 MG TAB PO SCH (22:27)
[2021-06-06 05:17] VITALS: BP 115/68
[2021-06-06 06:09] LABS: Basophils # (auto) 0.1 10 ^3/uL (0-0.2); Basophils % (auto) 0.3 % (0.0-2.0); Eosinophils # (auto) 0.1 10 ^3/uL (0-0.8); Eosinophils % (auto) 0.9 % (0.0-7.0); Hematocrit 40.3 % (36.0-46.0); Hemoglobin 13.4 g/dL (12.2-16.2); Lymphocytes # (auto) 0.6 10 ^3/uL (0.4-5.4); Lymphocytes % (auto) 3.6 % (10.0-50.0); Mean Corpuscular Hemoglobin 30.1 pg (28.0-32.0); Mean Corpuscular Hgb Conc. 33.2 g/dL (32.0-36.0); Mean Corpuscular Volume 90.6 fL (80.0-100.0); Monocytes # (auto) 1.7 10 ^3/uL (0-1.3); Monocytes % (auto) 10.4 % (0.0-12.0); Neutrophils # (auto) 13.5 10 ^3/uL (1.6-8.6); Neutrophils % (auto) 84.8 % (37.0-80.0); Nucleated Red Blood Cells % 0.1 %; Red Blood Cells 4.44 10^6/uL (4.0-5.20); Red Cell Distribution Width 16.2 % (11.8-14.3)
[2021-06-06 06:23] LABS: BUN/Creatinine Ratio 79.7; Calcium 8.9 mg/dL (8.5-10.1); Potassium 4.3 mmol/L (3.5-5.1)
[2021-06-06] MEDS: InsuLIN REG 1unit/0.01ml Soln (100units/ml) SC SCH ×4 (06:56→21:56)
[2021-06-06] MEDS: ACCU-CHEK COMFORT CURVE STRIP VI SCH ×4 (06:57→21:57)
[2021-06-06 08:00] VITALS: BP 129/72
[2021-06-06] MEDS: CHOLECALCIFEROL (VITD3) 2,000 UNIT CAP/TAB PO SCH (09:27)
[2021-06-06] MEDS: DexAMETHasone 4 MG TAB PO SCH (09:27)
[2021-06-06] MEDS: FAMOTIDINE 20 MG TAB PO SCH (09:27)
[2021-06-06] MEDS: SODIUM CHLOR 0.9% PF (SALINE LOCK) 10ML VIAL/SYR IV SCH ×2 (09:28→21:57)
[2021-06-06] MEDS: APIXABAN 5 MG TAB PO SCH ×2 (09:28→21:51)
[2021-06-06 13:00] VITALS: BP 139/73
[2021-06-06 17:00] VITALS: BP 132/71
[2021-06-06] MEDS: QUEtiapine FUMARATE 25 MG TAB PO SCH (18:11)
[2021-06-06] MEDS: ATORVASTATIN 20 MG TAB PO SCH (21:51)
[2021-06-06 22:00] VITALS: BP 111/74
[2021-06-07 05:00] VITALS: BP 119/76
[2021-06-07] MEDS: InsuLIN REG 1unit/0.01ml Soln (100units/ml) SC SCH ×2 (06:34→11:30)
[2021-06-07] MEDS: ACCU-CHEK COMFORT CURVE STRIP VI SCH ×2 (06:36→11:52)
[2021-06-07] MEDS: SODIUM CHLOR 0.9% PF (SALINE LOCK) 10ML VIAL/SYR IV SCH (08:41)
[2021-06-07] MEDS: DexAMETHasone 4 MG TAB PO SCH (08:41)
[2021-06-07] MEDS: APIXABAN 5 MG TAB PO SCH (08:42)
[2021-06-07] MEDS: CHOLECALCIFEROL (VITD3) 2,000 UNIT CAP/TAB PO SCH (08:42)
[2021-06-07] MEDS: FAMOTIDINE 20 MG TAB PO SCH (08:42)
[2021-06-07 09:00] VITALS: BP 112/61
[2021-06-07 13:00] VITALS: BP 134/86
[2021-06-07] MEDS: ACETAMINOPHEN 325 MG TAB PO PRN (13:37)
== END 2021-06-07 16:14 | DRG 177 ==
LOC: EDBD 20:58 → ER 21:01 → TELE 05-25 07:05 → TELE-EAST 05-25 18:30 → TELE-E-ADS 05-27 08:30
PROVIDERS: ADMIT Hospitalist; ATTEND Internal Medicine
PROC: XW033E5 Introduction of Remdesivir Anti-infective into Peripheral Vein, Percutaneous Approach, New Technology Group 5 (ICD-10-PCS; 2021-05-26)
PROC: B54MZZA Ultrasonography of Right Upper Extremity Veins, Guidance (ICD-10-PCS; principal; 2021-05-29)
PROC: 05HY33Z Insertion of Infusion Device into Upper Vein, Percutaneous Approach (ICD-10-PCS; 2021-05-29)
PROC: 5A0945A Assistance with Respiratory Ventilation, 24-96 Consecutive Hours, High Flow/Velocity Cannula (ICD-10-PCS; 2021-05-31)
DX: U07.1 COVID-19 (principal); J96.21 Acute and chronic respiratory failure with hypoxia; J12.82 Pneumonia due to coronavirus disease 2019; G92.8 Other toxic encephalopathy; E87.0 Hyperosmolality and hypernatremia; R78.81 Bacteremia; N39.0 Urinary tract infection, site not specified; I82.403 Acute embolism and thrombosis of unspecified deep veins of lower extremity, bilateral; J98.11 Atelectasis; R65.10 Systemic inflammatory response syndrome (SIRS) of non-infectious origin without acute organ dysfunction; Z66 Do not resuscitate; R62.7 Adult failure to thrive; I50.9 Heart failure, unspecified; I95.9 Hypotension, unspecified; I25.10 Atherosclerotic heart disease of native coronary artery without angina pectoris; G89.4 Chronic pain syndrome; B95.2 Enterococcus as the cause of diseases classified elsewhere; E11.9 Type 2 diabetes mellitus without complications; E86.0 Dehydration; F32.9 Major depressive disorder, single episode, unspecified; F41.9 Anxiety disorder, unspecified; I11.0 Hypertensive heart disease with heart failure; Z79.01 Long term (current) use of anticoagulants; Z79.899 Other long term (current) drug therapy; Z86.73 Personal history of transient ischemic attack (TIA), and cerebral infarction without residual deficits; Z88.5 Allergy status to narcotic agent; Z79.84 Long term (current) use of oral hypoglycemic drugs
CPT/HCPCS: 36415; 36569; 36600; 71045; 71275; 80048; 80053; 81001; 82040; 82533; 82728; 82805; 82962; 83605; 83735; 83880; 84100; 84478; 84484; 85007; 85025; 85027; 85379; 85610; 85730; 86141; 87040; 87077; 87081; 87086; 87088; 87186; 87426; 93005; 93306; 93970; 94660; 94760; 96365; 96366; 96372; 96375; C9113; G0378; J0696; J1100; J1815; J2543; J7060; J7131